=== PATIENT | female | born 1975 | race Caucasian/White ===

== ENCOUNTER 2023-05-17 07:39 | Day surgery (SDC) | payer OTHER ==
[2023-05-17] MEDS ORDERED: Propofol 200 MG/20 ML SDV IV ONE (07:40)
[2023-05-17] MEDS ORDERED: Midazolam 1 MG/ML 2 ML SDV IV ONE (07:40)
[2023-05-17] MEDS ORDERED: Sodium Chloride 0.9% 10 ML Syringe FLUSH PRN (07:45)
[2023-05-17] MEDS: Lactated Ringers 1,000 ML IV SCH (08:30)
== END 2023-05-17 10:23 | disposition home or self-care (01) ==
LOC: FB.SDS 07:39
PROVIDERS: ATTEND Surgery
DX: K29.50 Unspecified chronic gastritis without bleeding (principal); R13.10 Dysphagia, unspecified; K44.9 Diaphragmatic hernia without obstruction or gangrene; K29.70 Gastritis, unspecified, without bleeding; K31.84 Gastroparesis; K21.9 Gastro-esophageal reflux disease without esophagitis; E78.5 Hyperlipidemia, unspecified; K92.1 Melena; R13.19 Other dysphagia; R10.13 Epigastric pain; Z91.018 Allergy to other foods; Z79.899 Other long term (current) drug therapy
CPT/HCPCS: 00731; 45380; 82947; 88305; 88342; J2250; J2704; J7120